=== PATIENT | female | born 1950 | race Caucasian/White ===

== ENCOUNTER 2019-08-28 19:00 | Inpatient (IN) | payer MEDICARE, OTHER ==
[~2019-08-28] VITALS: Ht 165.1 cm; Wt 79.4 kg
--- NOTE | 2019-08-28 19:07 | NUR ---
pATIENT ARRIVES ON 5150 FOR DTO, HERE FOR MHU ADMIT
--- NOTE | 2019-08-28 19:10 | NUR ---
pt BIB pvt ambulance for medical clearance. On 367 hold for DTO. care of Dr. Moser coming from [facility]
--- NOTE | 2019-08-28 19:20 | NUR ---
pt in bathroom providing urine sample
--- NOTE | 2019-08-28 19:26 | NUR ---
urine sample collected. sent to lab
[2019-08-28 19:32] LABS: *BILIRUBIN,URIN NEGATIVE (NEGATIVE); *BLOOD, URINE NEGATIVE (NEGATIVE); *COLOR,URINE LIGHT YELLOW (YELLOW); *KETONES,URINE NEGATIVE (NEGATIVE); *UROBILINOGEN,URINE 0.2 E.U./dl (NORMAL); LEUKOCYTE ESTERASE ,URINE 1+ (NEGATIVE); NITRITE, URINE NEGATIVE (NEGATIVE); UGLUCOSE NEGATIVE (NEGATIVE)
[2019-08-28 19:39] LABS: *CLARITY,URINE SLIGHTLY HAZY (CLEAR)
[2019-08-28 19:40] LABS: BACTERIA,URINE FEW /HPF (NONE SEEN); SQUAMOUS EPITHELIAL CELL,UR MODERATE /HPF (NONE SEEN)
[2019-08-28] MEDS ORDERED: HALO100A2 IM (19:40)
[2019-08-28] MEDS ORDERED: ACET-2154 PO (19:40)
[2019-08-28] MEDS ORDERED: HYDR-894 PO (19:40)
--- NOTE | 2019-08-28 19:40 | NUR ---
[facility]SA SWAB DONE AND SENT TO LAB
--- NOTE | 2019-08-28 19:41 | NUR ---
DR. CHONG AT BEDSIDE FOR MSE
[2019-08-28 19:44] LABS: *AMPHETAMINE, URINE NEGATIVE (NEGATIVE); *BARBITURATE, URINE NEGATIVE (NEGATIVE); *CANNABINOID, URINE NEGATIVE (NEGATIVE); *COCCAINE, URINE NEGATIVE (NEGATIVE); *OPIATE, URINE NEGATIVE (NEGATIVE); *PHENCYCLIDINE SCREEN,URINE NEGATIVE (NEGATIVE)
[2019-08-28] MEDS ORDERED: NITROFURANTOIN/NITROFURAN MAC 100 MG CAPSULE PO ONE (19:45)
[2019-08-28] MEDS ORDERED: NITROFURANTOIN/NITROFURAN MAC 100 MG CAPSULE ONE (19:50)
[2019-08-28 20:02] LABS: ETHANOL < 3 MG/DL (0-0)
[2019-08-28 20:04] LABS: BASOPHILS # (AUTO) 0.1 K/uL (0.0-8.0); BASOPHILS % (AUTO) 0.9 % (0.0-2.0); EOSINOPHILS % (AUTO) 0.2 % (0.0-7.0); HEMATOCRIT 42.9 % (31.2-41.9); HEMOGLOBIN 14.4 g/dL (10.9-14.3); LYMPHOCYTES # (AUTO) 1.9 K/uL (20.0-40.0); LYMPHOCYTES % (AUTO) 23.8 % (20.5-51.5); MEAN CORPUSCULAR HEMOGLOBIN 30.8 uug (24.7-32.8); MEAN CORPUSCULAR HGB CONC 34 g/dL (32.3-35.6); MEAN CORPUSCULAR VOLUME 91.5 fL (75.5-95.3); MONOCYTES # (AUTO) 0.8 K/uL (2.0-10.0); MONOCYTES % (AUTO) 9.5 % (0.0-11.0); NEUTROPHILS # (AUTO) 5.3 K/uL (1.8-8.9); NEUTROPHILS % (AUTO) 65.6 % (38.5-71.5); PLATELET COUNT (AUTO) 260 K/uL (179-408); RED BLOOD CELL COUNT(AUTO) 4.69 MIL/uL (3.63-4.92)
[2019-08-28 20:18] LABS: CARBON DIOXIDE 29 mmol/L (21-32); CHLORIDE 104 mmol/L (98-107); CREATININE 0.7 mg/dL (0.6-1.3); GLUCOSE 115 mg/dL (74-106); THYROID STIMULATING HORMONE 2.111 mIU/mL (0.358-3.740); UREA NITROGEN, BLOOD 10 mg/dL (7-18)
[2019-08-28 20:24] LABS: ALANINE AMINOTRANSFERASE 23 U/L (14-59); ALKALINE PHOSPHATASE 113 U/L (50-136); ASPARTATE AMINOTRANSFERASE 21 U/L (15-37); BILIRUBIN,DIRECT 0.1 mg/dL (0.0-0.2); BILIRUBIN,TOTAL 0.3 mg/dL (0.2-1.0); TOTAL PROTEIN, SERUM 7.7 g/dL (6.4-8.2)
[2019-08-28 20:25] LABS: ACETAMINOPHEN < 2.0 ug/mL (10-30)
[2019-08-28] MEDS ORDERED: IV NS 1000 ML 1,000 ML IV ONE (20:45)
--- NOTE | 2019-08-28 21:07 | NUR ---
REPORT GIVEN TO JACK BARNES AT [facility]
[2019-08-28 21:20] VITALS: BP 157/94
--- NOTE | 2019-08-28 21:20 | NUR ---
69 Y.O. FEMALE BROUGHT TO [facility] FROM [facility]IA [facility], ACCOMPANIED BY ER STAFF. PT ON A 5150 HOLD FOR DTO AND GD. ACCORDING TO THE HOLD Addendum: 08/29/19 at 0020 by JOSE ANTONIO GARCIA RN NOT YET FINISH DOCUMENTING
[2019-08-28] MEDS ORDERED: ACETAMINOPHEN 325 MG TABLET PO PRN (21:30)
[2019-08-28] MEDS ORDERED: BLOOD SUGAR DIAGNOSTIC 1 EACH STRIP VI ONE (21:30)
[2019-08-28] MEDS ORDERED: MAG HYDROX/AL HYDROX/SIMETH 30 ML LIQUID UDC PO PRN (21:30)
[2019-08-28] MEDS ORDERED: TEMAZEPAM 7.5 MG CAPSULE PO PRN (21:30)
[2019-08-28] MEDS ORDERED: LORAZEPAM 0.5 MG TABLET PO PRN (21:30)
[2019-08-28] MEDS ORDERED: MAGNESIUM HYDROXIDE 30 ML LIQUID UDC PO PRN (21:30)
--- NOTE | 2019-08-28 21:30 | NUR ---
IV removed. Catheter intact and site benign. Pressure and 4x4 gauze applied to site. No bleeding noted. pt taken to MHU. all belongings with pt
--- NOTE | 2019-08-29 00:18 | NUR ---
69 Y.O. FEMALE BROUGHT TO MHU FROM ER VIA GURNEY, ACCOMPANIED BY ER STAFF. PT ON A 5150 HOLD FOR DTO . ACCORDING TO THE HOLD, PT THREW CUPS OF FLUID AT RESIDENTS AND WERE VERBALLY AND PHYSICALLY ABUSIVE TO THE ADMIN AND STAFF. PT HAVE PRESSURED SPEECH, PARANOID AND SUSPICIOUS AND PLAN TO GO HOME, BUT DON'T HAVE ADDRESS. UPON FACE TO FACE ASSESSMENT, PT APPEARS TO REFLECT WHAT IS ON THE HOLD. PT IS ANXIOUS,HOSTILE, PARANOID, AND SUSPICIOUS. PT IS ALERT AND ORIENTEDX2. PT HAD NO SUICIDAL IDEATION. PT DOESN'T KNOW WHY SHE WAS HERE ADMIITED. PT UNCOOPERATIVE AND REFUSING TO SIGN PAPERS. SENIOR CARE ASSESSMENT DONE. DR. MATHIAS AND NOTIFIED ON ADMISSION. PT ORIENTED TO UNIT ,AND EDUCATED ON UNIT RULES. VITAL SIGNS STABLE. ADVISEMENT AND PATIENT RIGHTS HANDBOOK GIVEN . WILL CONTINUE TO MONITOR.
--- NOTE | 2019-08-29 06:29 | NUR ---
PT SLEPT 6 H. PT IN NO ACUTE DISTRESS. PT EASILY AGITATED. PT NEED REORIENTATION.SAFETY AND COMFORT PROVIDED. WILL CONTINUE TO MONITOR.
[2019-08-29 07:30] VITALS: BP 153/88
[2019-08-29] MEDS ORDERED: HALOPERIDOL LACTATE 5 MG/1 ML VIAL IM ONE (08:30)
[2019-08-29] MEDS ORDERED: diphenhydrAMINE 50 MG/1 ML VIAL IM ONE (08:30)
--- NOTE | 2019-08-29 08:45 | NUR ---
PT NOTED TO BE EASILY AGITATED AT NURSES STATION. VERBALLY AGGRESSIVE TOWARDS DR. CONNELL. POSTURING, CURSING AND THREATENING HIM. REQUIRES EXTENSIVE REDIRECTION. DR. MATHIAS ORDERED HALDOL 5MG IM AND BENADRYL 25MG IM X1 NOW. NOTED AND CARRIED OUT.
[2019-08-29] MEDS: DIVALPROEX SPRINKLE 125 MG CAP.SPRINK PO SCH ×2 (09:00→20:37)
--- NOTE | 2019-08-29 12:10 | NUR ---
Social work note/initial discharge not: Patient currently resides at [facility] ([address] [place] [address]; [phone]). Patient will return to facility when she is stable, spoke with CAROLE (admin coordinator). coke worker will continue to work with patient, family, and MD to ensure a safe and proper discharge plan.
--- NOTE | 2019-08-29 12:28 | NUR ---
Social work note.FIREARMS REPORT ([facility]): Color Maker Formulator completed and submitted a [employer] firearms report for 5150 grave disability certification. A copy of report has been placed in patient chart.
[2019-08-29] MEDS ORDERED: hydrALAZINE HCL 25 MG TABLET PO PRN (14:00)
[2019-08-29 16:00] VITALS: BP 168/107
[2019-08-29] MEDS: BENZTROPINE MESYLATE 0.5 MG TABLET PO SCH (16:04)
[2019-08-29] MEDS: HALOPERIDOL 5 MG TABLET PO SCH (16:04)
[2019-08-29] MEDS: NITROFURANTOIN/NITROFURAN MAC 100 MG CAPSULE PO SCH (20:37)
[2019-08-29 20:38] VITALS: BP 166/108
--- NOTE | 2019-08-30 06:28 | NUR ---
Patient slept a total of 7.45 hours. Attended all needs. Ensured safety and comfort. Patient does not engage in meaningful conversation and has been refusing medications. Will endorse accordingly.
[2019-08-30 07:30] VITALS: BP 138/72
[2019-08-30] MEDS: NITROFURANTOIN/NITROFURAN MAC 100 MG CAPSULE PO SCH ×2 (08:19→20:20)
[2019-08-30] MEDS: BENZTROPINE MESYLATE 0.5 MG TABLET PO SCH ×2 (08:20→17:00)
[2019-08-30] MEDS: DIVALPROEX SPRINKLE 125 MG CAP.SPRINK PO SCH ×2 (08:20→20:20)
[2019-08-30] MEDS: HALOPERIDOL 5 MG TABLET PO SCH ×2 (08:20→17:00)
[2019-08-30 15:54] VITALS: BP 141/88
--- NOTE | 2019-08-30 17:17 | NUR ---
patient continue to refused her medication despite of educating her risk and benifets of medications.
[2019-08-30 20:00] VITALS: BP 157/86
--- NOTE | 2019-08-30 21:00 | NUR ---
Patient refused to take all medications, calling all of us ' Robots' and stated ' your blood pressure machine does not work right '. Patients MD aware of medication refusal. Will continue to encourage compliance,
[2019-08-31 07:30] VITALS: BP 135/85
[2019-08-31] MEDS: HALOPERIDOL 5 MG TABLET PO SCH ×2 (09:00→17:00)
[2019-08-31] MEDS: DIVALPROEX SPRINKLE 125 MG CAP.SPRINK PO SCH ×2 (09:00→20:08)
[2019-08-31] MEDS: BENZTROPINE MESYLATE 0.5 MG TABLET PO SCH ×2 (09:00→17:00)
[2019-08-31] MEDS: NITROFURANTOIN/NITROFURAN MAC 100 MG CAPSULE PO SCH ×2 (09:00→20:09)
[2019-08-31 16:01] VITALS: BP 159/96
--- NOTE | 2019-08-31 17:05 | NUR ---
Patient refused to take her 1700 medications. She stated that she does not take any medications and that God is her doctor and he did not prescribed any meds. for her.
[2019-08-31 20:13] VITALS: BP 122/83
--- NOTE | 2019-08-31 20:51 | NUR ---
Patient continues to refuse medications. Risks and benefits explained. MDS are aware.
[2019-09-01 07:30] VITALS: BP 134/88
[2019-09-01] MEDS: NITROFURANTOIN/NITROFURAN MAC 100 MG CAPSULE PO SCH ×2 (08:19→20:25)
[2019-09-01] MEDS: BENZTROPINE MESYLATE 0.5 MG TABLET PO SCH ×2 (08:19→16:15)
[2019-09-01] MEDS: DIVALPROEX SPRINKLE 125 MG CAP.SPRINK PO SCH ×2 (08:19→20:25)
[2019-09-01] MEDS: HALOPERIDOL 5 MG TABLET PO SCH ×2 (08:19→16:15)
--- NOTE | 2019-09-01 12:46 | NUR ---
been trying to fax RIESE documents to court since 0830am this morning no luck in sending will continue trying, nursing shift supervisor melting made aware
[2019-09-01 15:29] VITALS: BP 133/79
--- NOTE | 2019-09-01 15:39 | NUR ---
celestino documents sent and received by the court
--- NOTE | 2019-09-01 18:29 | NUR ---
patient continue refused all po medication, applied [facility].
[2019-09-01 20:00] VITALS: BP 156/88
[2019-09-02 07:30] VITALS: BP 122/83
[2019-09-02] MEDS: BENZTROPINE MESYLATE 0.5 MG TABLET PO SCH ×2 (08:06→16:00)
[2019-09-02] MEDS: HALOPERIDOL 5 MG TABLET PO SCH ×2 (08:07→16:00)
[2019-09-02] MEDS: DIVALPROEX SPRINKLE 125 MG CAP.SPRINK PO SCH ×2 (08:07→21:00)
[2019-09-02] MEDS: NITROFURANTOIN/NITROFURAN MAC 100 MG CAPSULE PO SCH ×2 (08:09→21:00)
--- NOTE | 2019-09-02 15:24 | NUR ---
called and spoke with Dr. Moser regarding the [facility] Hearing schedule for tomorrow 09/03 at 1330p, will continue monitor
[2019-09-02 16:26] VITALS: BP 111/76
[2019-09-02 20:00] VITALS: BP 140/85
--- NOTE | 2019-09-03 06:28 | NUR ---
Patient slept a total of 7.45 hours. Attended all needs. Ensured safety and comfort. No other untoward events noted. Still refusing medication. Will endorse accordingly.
[2019-09-03 07:48] VITALS: BP 128/92
[2019-09-03] MEDS: NITROFURANTOIN/NITROFURAN MAC 100 MG CAPSULE PO SCH ×2 (09:00→20:42)
[2019-09-03] MEDS: DIVALPROEX SPRINKLE 125 MG CAP.SPRINK PO SCH ×2 (09:00→20:41)
[2019-09-03] MEDS: HALOPERIDOL 5 MG TABLET PO SCH ×2 (09:00→17:00)
[2019-09-03] MEDS: BENZTROPINE MESYLATE 0.5 MG TABLET PO SCH ×2 (09:00→17:00)
[2019-09-03 16:00] VITALS: BP 147/91
[2019-09-03] MEDS: HALOPERIDOL LACTATE 5 MG/1 ML VIAL IM PRN (17:49)
[2019-09-03] MEDS: diphenhydrAMINE 50 MG/1 ML VIAL IM PRN (17:50)
[2019-09-03 20:54] VITALS: BP 124/78
[2019-09-04 07:30] VITALS: BP 147/78
[2019-09-04] MEDS: DIVALPROEX SPRINKLE 125 MG CAP.SPRINK PO SCH ×2 (08:31→20:36)
[2019-09-04] MEDS: BENZTROPINE MESYLATE 0.5 MG TABLET PO SCH ×2 (08:31→17:00)
[2019-09-04] MEDS: HALOPERIDOL 5 MG TABLET PO SCH ×3 (08:32→17:00)
[2019-09-04] MEDS: NITROFURANTOIN/NITROFURAN MAC 100 MG CAPSULE PO SCH ×2 (08:32→20:37)
[2019-09-04] MEDS: HALOPERIDOL LACTATE 5 MG/1 ML VIAL IM PRN ×3 (08:41→17:36)
[2019-09-04] MEDS: diphenhydrAMINE 50 MG/1 ML VIAL IM PRN ×3 (08:41→17:36)
[2019-09-04] MEDS ORDERED: HALOPERIDOL 5 MG TABLET PO SCH (11:15)
[2019-09-04 16:00] VITALS: BP 127/76
[2019-09-04 20:57] VITALS: BP 146/92
--- NOTE | 2019-09-04 21:50 | NUR ---
Refused macrobid and depakote.
[2019-09-05 07:30] VITALS: BP 126/81
[2019-09-05] MEDS: diphenhydrAMINE 50 MG/1 ML VIAL IM PRN ×2 (08:42→13:49)
[2019-09-05] MEDS: HALOPERIDOL LACTATE 5 MG/1 ML VIAL IM PRN ×2 (08:42→13:49)
[2019-09-05] MEDS: NITROFURANTOIN/NITROFURAN MAC 100 MG CAPSULE PO SCH ×2 (08:55→20:34)
[2019-09-05] MEDS: BENZTROPINE MESYLATE 0.5 MG TABLET PO SCH ×2 (08:55→17:00)
[2019-09-05] MEDS: DIVALPROEX SPRINKLE 125 MG CAP.SPRINK PO SCH ×2 (08:55→20:34)
[2019-09-05] MEDS: HALOPERIDOL 5 MG TABLET PO SCH ×3 (08:55→17:00)
[2019-09-05 16:39] VITALS: BP 140/93
[2019-09-05 20:17] VITALS: BP 131/80
--- NOTE | 2019-09-06 06:03 | NUR ---
patient continue to refused medications macrobid and depakote despite of the encouragement and became upset if try . Slept 8 hrs. and 15 mins. No s/s acute distress.
[2019-09-06 08:13] VITALS: BP 124/82
[2019-09-06] MEDS: HALOPERIDOL LACTATE 5 MG/1 ML VIAL IM PRN ×3 (08:36→16:25)
[2019-09-06] MEDS: NITROFURANTOIN/NITROFURAN MAC 100 MG CAPSULE PO SCH ×2 (09:00→21:00)
[2019-09-06] MEDS: DIVALPROEX SPRINKLE 125 MG CAP.SPRINK PO SCH ×2 (09:00→21:00)
[2019-09-06] MEDS: BENZTROPINE MESYLATE 0.5 MG TABLET PO SCH ×2 (09:00→17:00)
[2019-09-06] MEDS: HALOPERIDOL 5 MG TABLET PO SCH ×3 (09:00→17:00)
--- NOTE | 2019-09-06 09:16 | NUR ---
GPS:received patient aox3, patient was in bed, offered her medication, patient refused her oral medication, argumentative and verbally abusive, educate patient regarding her RIESE , patient aware about the RIESE protocol and still refused her oral medication, gave IM medication as ordered, tolerated the procedure, will continue monitor
[2019-09-06 16:28] VITALS: BP 134/77
--- NOTE | 2019-09-06 17:15 | NUR ---
PATIENT STILL NON COMPLIANT WITH HER MEDICATION, PATIENT ALLOWED IM MEDICATION INSTEAD OF HER ORAL MEDICATION, PATIENT EASILY IRRITATED WHEN EXPLAINED ABOUT HER MEDICATION, HOWEVER CALM AND COOPERATIVE MOST OF THE TIME, DENIES SI AND HI, WILL CONTINUE MONITOR
[2019-09-06 20:08] VITALS: BP 132/80
[2019-09-07 08:24] VITALS: BP 118/59
[2019-09-07] MEDS: NITROFURANTOIN/NITROFURAN MAC 100 MG CAPSULE PO SCH ×2 (08:51→21:00)
[2019-09-07] MEDS: DIVALPROEX SPRINKLE 125 MG CAP.SPRINK PO SCH ×2 (08:51→21:00)
[2019-09-07] MEDS: BENZTROPINE MESYLATE 0.5 MG TABLET PO SCH ×2 (08:51→16:42)
[2019-09-07] MEDS: HALOPERIDOL 5 MG TABLET PO SCH ×3 (08:51→21:00)
[2019-09-07] MEDS: HALOPERIDOL LACTATE 5 MG/1 ML VIAL IM PRN ×3 (08:57→21:04)
[2019-09-07] MEDS: diphenhydrAMINE 50 MG/1 ML VIAL IM PRN ×3 (08:57→21:04)
[2019-09-07 16:28] VITALS: BP 122/76
[2019-09-07 20:00] VITALS: BP 134/85
--- NOTE | 2019-09-07 21:32 | NUR ---
Patient noncompliant with PO medication. Offered x3. Patient is under Riese. Explained to patient risks and benefits of medication, but she said "I don't take any medication" Explained to patient if she does not take PO medication she had to get an injection and patient said "that is fine with me" Returned with IM Haldol and Benadryl and patient let me administer medication. Patient is resting in bed. Will continue to monitor.
[2019-09-08 08:04] VITALS: BP 131/71
[2019-09-08] MEDS: HALOPERIDOL LACTATE 5 MG/1 ML VIAL IM PRN ×3 (08:30→21:37)
[2019-09-08] MEDS: diphenhydrAMINE 50 MG/1 ML VIAL IM PRN ×3 (08:36→21:37)
[2019-09-08] MEDS: BENZTROPINE MESYLATE 0.5 MG TABLET PO SCH ×2 (09:00→17:00)
[2019-09-08] MEDS: HALOPERIDOL 5 MG TABLET PO SCH ×3 (09:00→21:00)
[2019-09-08] MEDS: NITROFURANTOIN/NITROFURAN MAC 100 MG CAPSULE PO SCH ×2 (09:00→21:00)
[2019-09-08 16:00] VITALS: BP 117/73
--- NOTE | 2019-09-08 17:11 | NUR ---
GPS: PATIENT AOX1, AMBULATORY SELF CARE, ON RIESE PROTOCOL , PATIENT STILL NON COMPLIANT WITH ORAL MEDICATION, DENIES SI AND HI, WILL CONTINUE MONITOR
[2019-09-08 20:00] VITALS: BP 138/67
--- NOTE | 2019-09-09 06:46 | NUR ---
Patient continues to refuse PO medication. IM riese status administered as ordered. Patient slept through night a total of seven hours and fifteen minutes w/o distress noted. Will continue to monitor for safety.
[2019-09-09 07:30] VITALS: BP 109/76
[2019-09-09] MEDS: diphenhydrAMINE 50 MG/1 ML VIAL IM PRN ×3 (08:20→21:11)
[2019-09-09] MEDS: HALOPERIDOL LACTATE 5 MG/1 ML VIAL IM PRN ×3 (08:20→21:11)
[2019-09-09] MEDS: HALOPERIDOL 5 MG TABLET PO SCH ×3 (09:00→20:19)
[2019-09-09] MEDS: NITROFURANTOIN/NITROFURAN MAC 100 MG CAPSULE PO SCH (09:00)
[2019-09-09] MEDS: BENZTROPINE MESYLATE 0.5 MG TABLET PO SCH ×2 (09:00→17:00)
[2019-09-09] MEDS ORDERED: HALOPERIDOL DECANOATE 50 MG/1 ML AMPUL IM SCH (10:00)
--- NOTE | 2019-09-09 13:42 | NUR ---
Social Work Note/Family Contact: harvest worker fruit tried to reach patient's next of kin, Oli Wakefield ([phone]) to inform of patient's discharge plans but unable to reach despite numerous attempts.
--- NOTE | 2019-09-09 14:56 | NUR ---
GPS: RECEIVED PATIENT AOX2, STILL NON COMPLIANT WITH MEDICATION, EXPLAINED TO THE PATIENT ABOUT HER RIESE AND PATIENT STILL REFUSE ORAL MEDICATION THIS MORNING, PATIENT BEEN CALM AND WALKING AROUND THE HALLWAY, DENIES SI AND HI, SEEN AND EXAMINED BY DR. MATHIAS, WITH NEW ORDER OF HALDOL DECANOATE GIVEN TODAY , PATIENT TOLERATED THE PROCEDURE AND ALLOW IM MEDICATION, WILL CONTINUE MONITOR
[2019-09-09 15:06] VITALS: BP 112/81
--- NOTE | 2019-09-09 17:54 | NUR ---
patient remain calm in her room, ate dinner , in no distress at this moment will continue monitor
[2019-09-09 19:53] VITALS: BP 127/81
--- NOTE | 2019-09-09 21:39 | NUR ---
Patient first observed in dining room. Alert, oriented having snack, minimal interaction on approach. Fair appearance. Refused PO HS medication. ADministered IM as ordered on right upper glut. will continue to monitor for adverse reactions.
--- NOTE | 2019-09-10 06:43 | NUR ---
Patient slept a total of eight hours, no signs of distress noted. Continue to follow plan of care.
[2019-09-10 07:30] VITALS: BP 92/56
--- NOTE | 2019-09-10 08:01 | NUR ---
Social Work Note/Discharge Note: Patient will be discharged to half-way facility to [facility] [[address] [place] [address] [phone]; ] via Ambulance transportation. Please arrange Ambulance transportation for patient to be picked up at 12:30am. Marine Engine Machinist Apprentice spoke with , Commutator Operator ([phone]), who stated patient will be accepted at facility today. Patient is alert and oriented x3 and is not able to plan for self-care at this time but is willing to accept care provided for her at the facility. Patient denies suicidal or homicidal ideations. Patient is aware and agreeable with discharge plans. Patient has no supportive contacts at this time. Patient presents with irritable mood and congruent affect at this time. Patient will continue to follow-up with her Psychiatrist Dr. Moser and Repairer Typewriter Dr. Escamilla at [facility].
[2019-09-10] MEDS: HALOPERIDOL LACTATE 5 MG/1 ML VIAL IM PRN (08:51)
[2019-09-10] MEDS: diphenhydrAMINE 50 MG/1 ML VIAL IM PRN (08:55)
[2019-09-10] MEDS: HALOPERIDOL 5 MG TABLET PO SCH (09:00)
[2019-09-10] MEDS: BENZTROPINE MESYLATE 0.5 MG TABLET PO SCH (09:00)
--- NOTE | 2019-09-10 09:45 | NUR ---
Patient is alert, oriented x 2, not in any distress, non-compliant with oral medications. Offered oral medications 3x but patient still refused. Patient is aware on riese protocol and so administered IM medications as ordered which patient willingly received. Patient is calm and denies SI and HI. Discharge order given by Dr. Moser going to [facility] and patient is aware and agreeable. Will continue to monitor.
--- NOTE | 2019-09-10 12:30 | NUR ---
Discharge instructions given to the patient, all belongings well accounted for. Report given to Becca BARNES at [facility]3] where patient is discharging to.
--- NOTE | 2019-09-10 13:00 | NUR ---
Patient discharged to [facility], picked up by [facility] transportation via gurney. Patient remains alert, no complain of any pain or discomfort, not in any distress, vital signs stable. She denies any SI or HI.
== END 2019-09-10 16:28 | DRG 885 ==
LOC: ER 19:02 → GPS 21:13
PROVIDERS: ADMIT Psychiatry & Neurology Psychiatry; ATTEND Nurse Practitioner Acute Care
DX: F25.0 Schizoaffective disorder, bipolar type (principal); G93.41 Metabolic encephalopathy; N39.0 Urinary tract infection, site not specified; J45.909 Unspecified asthma, uncomplicated; F41.9 Anxiety disorder, unspecified; I10 Essential (primary) hypertension; Z91.19 Patient's noncompliance with other medical treatment and regimen
CPT/HCPCS: 36415; 80307; 84443; 85025; 87086; 93005; A4663; G0480; G0480-TC; J1200; J1630; J1631; J7030